=== PATIENT | male | born 2000 | race Caucasian/White ===

== ENCOUNTER 2022-07-09 12:24 | Emergency (ER) | payer OTHER, SELFPAY ==
--- NOTE | 2022-07-09 13:10 | PC.NURSE ---
called at [phone] and [phone] for triage with no answer
== END 2022-07-09 16:06 | disposition left against medical advice (07) ==
DX: Z53.21 Procedure and treatment not carried out due to patient leaving prior to being seen by health care provider (principal)
CPT/HCPCS: 99199